=== PATIENT | female | born 1985 | race Caucasian/White ===

== ENCOUNTER 2017-12-15 13:11 | Outpatient (CLI) | payer BC ==
[2017-12-15] MEDS ORDERED: IOHEXOL 50 ML IV ONE (13:48)
== END 2017-12-15 19:52 | disposition home or self-care (01) ==
LOC: SRD 13:11
PROVIDERS: ATTEND Specialist
DX: N92.6 Irregular menstruation, unspecified (principal)
CPT/HCPCS: 74740; Q9967